=== PATIENT | male | born 1970 | race Caucasian/White ===

== ENCOUNTER 2022-07-13 14:25 | Outpatient (CLI) | payer OTHER, SELFPAY | END 2022-07-13 14:26 | disposition home or self-care (01) | LOC: LKVREF 14:39 | PROVIDERS: PCP Family Medicine; Visit Provider Family Medicine | DX: Z00.00 Encounter for general adult medical examination without abnormal findings (principal); R20.2 Paresthesia of skin; R42 Dizziness and giddiness; I10 Essential (primary) hypertension | CPT/HCPCS: 84443 ==

== ENCOUNTER 2022-08-10 11:13 | Outpatient (CLI) | payer OTHER, SELFPAY | END 2022-08-10 11:14 | disposition home or self-care (01) | PROVIDERS: PCP Family Medicine; Visit Provider Internal Medicine | DX: Z12.11 Encounter for screening for malignant neoplasm of colon (principal); K63.5 Polyp of colon | CPT/HCPCS: 45380; J2250; J3010 ==

== ENCOUNTER 2022-09-24 11:47 | Outpatient (CLI) | payer OTHER, SELFPAY ==
[2022-09-24 14:11] LABS: Chloride* 105 mmol/L (96-114); Potassium* 4.9 mmol/L (3.6-5.1); Sodium* 140 mmol/L (135-149)
[2022-09-24 14:14] LABS: Blood Urea Nitrogen* 18 mg/dL (7-30); Carbon Dioxide* 28 mmol/L (20-32); Cholesterol* 226 mg/dL (90-199); Creatinine* 1.1 mg/dL (0.5-1.5); Estimated Glomerular Filt Rate 82 ml/min
[2022-09-24 14:15] LABS: Calcium* 9.4 mg/dL (8.4-10.6); Glucose* 84 mg/dL (60-115); HDL Cholesterol* 84 mg/dL (>=40); LDL Cholesterol Calculated 126 mg/dL (<100); Triglycerides* 78 mg/dL (40-149)
[2022-09-24 14:35] LABS: PSA Screen* 0.61 ng/mL (0.10-4.00)
== END 2022-09-24 11:48 | disposition home or self-care (01) ==
PROVIDERS: PCP Family Medicine; Visit Provider Family Medicine
DX: Z00.00 Encounter for general adult medical examination without abnormal findings (principal); E78.5 Hyperlipidemia, unspecified; Z12.5 Encounter for screening for malignant neoplasm of prostate
CPT/HCPCS: 80048; 80061; 84153

== ENCOUNTER 2022-12-03 08:52 | Outpatient (CLI) | payer OTHER, SELFPAY | END 2022-12-03 08:53 | disposition home or self-care (01) | LOC: LKVREF 08:52 | PROVIDERS: PCP Family Medicine; Visit Provider Family Medicine | DX: E03.9 Hypothyroidism, unspecified (principal) | CPT/HCPCS: 84443 ==

== ENCOUNTER 2024-01-03 13:21 | Outpatient (CLI) | payer OTHER, SELFPAY | END 2024-01-03 13:22 | disposition home or self-care (01) | PROVIDERS: PCP Family Medicine; Visit Provider Family Medicine | DX: E03.9 Hypothyroidism, unspecified (principal); Z13.228 Encounter for screening for other metabolic disorders; E78.00 Pure hypercholesterolemia, unspecified | CPT/HCPCS: 80048; 80061; 84443 ==